=== PATIENT | female | born 2000 | race Caucasian/White ===

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

== ENCOUNTER 2023-03-30 11:48 | Emergency (ER) | payer MEDICAID, OTHER ==
[~2023-03-30] VITALS: Ht 170.2 cm; Wt 59.0 kg
[2023-03-30 13:09] LABS: Basophils # (auto) 0 10 ^3/uL (0-0.2); Basophils % (auto) 0.4 % (0.0-2.0); Eosinophils # (auto) 0.1 10 ^3/uL (0-0.8); Hematocrit 37.8 % (36.0-46.0); Lymphocytes # (auto) 1.4 10 ^3/uL (0.4-5.4); Lymphocytes % (auto) 12.7 % (10.0-50.0); Mean Corpuscular Hemoglobin 29.4 pg (28.0-32.0); Mean Corpuscular Hgb Conc. 34.3 g/dL (32.0-36.0); Mean Corpuscular Volume 85.8 fL (80.0-100.0); Monocytes # (auto) 0.8 10 ^3/uL (0-1.3); Monocytes % (auto) 6.9 % (0.0-12.0); Neutrophils # (auto) 8.7 10 ^3/uL (1.6-8.6); Nucleated Red Blood Cells % 0.1 %; Red Blood Cells 4.41 10^6/uL (4.0-5.20); Red Cell Distribution Width 12.7 % (11.8-14.3)
[2023-03-30 13:20] LABS: Urine Bacteria MANY /hpf (None Seen); Urine Blood 3+ /uL (Negative); Urine Mucus MANY (None Seen); Urine WBC 199 /hpf (0 - 5)
[2023-03-30 13:25] LABS: Albumin 3.5 g/dL (3.4-5.0); Potassium 3.6 mmol/L (3.5-5.1)
[2023-03-30 13:28] LABS: BUN/Creatinine Ratio 15.9 (10.0-20.0); Bilirubin, Total 1.1 mg/dL (0.2-1.0); Total Protein 7.8 g/dL (6.4-8.2)
[2023-03-30 13:57] VITALS: BP 110/72
[2023-03-30] MEDS ORDERED: cefTRIAXone SOD 1,000 MG VL IM ONE ×2 (14:30→14:45)
[2023-03-30] MEDS ORDERED: CEPH500T PO (16:30)
[2023-03-30] MEDS ORDERED: MISO200T67 PO (16:30)
== END 2023-03-30 17:00 | disposition home or self-care (01) ==
LOC: ER 11:48
DX: O03.4 Incomplete spontaneous abortion without complication (principal); N39.0 Urinary tract infection, site not specified; R10.2 Pelvic and perineal pain
CPT/HCPCS: 36415; 76817; 76856; 80053; 81001; 84702; 85025; 87086; 96372; 99285; J0696